=== PATIENT | female | born 1985 | race Hispanic/Latino ===

== ENCOUNTER 2019-04-14 18:42 | Emergency (ER) | payer SELFPAY ==
[2019-04-14 18:51] VITALS: BP 124/65
--- NOTE | 2019-04-14 18:51 | Emergency Department Report ---
Blank Doc - Documentation Documentation: This is a 34-year-old female that presents with pelvic pain, abdominal distent ion and heavy vaginal discharge with some blood. This initial assessment/diagnostic orders/clinical plan/treatment(s) is/are subject to change based on patient's health status, clinical progression and re- assessment by fellow clinical providers in the ED. Further treatment and workup at subsequent clinical providers discretion. Patient/guardians urged not to elope from the ED as their condition may be serious if not clinically assessed and managed. Initial orders include: 1- Patient sent to MAIN ED for further evaluation and treatment 2- labs 3- UA
[2019-04-14 19:26] LABS: Basophils # (Auto) 0.1 K/mm3 (0.0-0.1); Basophils % (Auto) 0.8 % (0.0-1.8); Eosinophils # (Auto) 0.1 K/mm3 (0.0-0.4); Hematocrit 35.5 % (30.3-42.9); Hemoglobin 11.8 gm/dl (10.1-14.3); Lymphocytes # (Auto) 2.4 K/mm3 (1.2-5.4); Lymphocytes % (Auto) 32.5 % (13.4-35.0); Mean Corpuscular HGB Conc 33 % (30-34); Mean Corpuscular Volume 95 fl (79-97); Monocytes # (Auto) 0.6 K/mm3 (0.0-0.8); Monocytes % (Auto) 7.5 % (0.0-7.3); Platelet Count 274 K/mm3 (140-440); Red Blood Count 3.73 M/mm3 (3.65-5.03); Red Cell Distribution Width 13.8 % (13.2-15.2)
[2019-04-14 19:41] LABS: Alanine Aminotransferase 15 units/L (7-56); Albumin 3.9 g/dL (3.9-5); BUN/Creatinine Ratio 18; Blood Urea Nitrogen 7 mg/dL (7-17); Calcium 9.4 mg/dL (8.4-10.2); Hemolysis Index 9
== END 2019-04-14 19:50 | disposition left against medical advice (07) ==
LOC: ED 18:42
DX: R10.9 Unspecified abdominal pain (principal); Z53.21 Procedure and treatment not carried out due to patient leaving prior to being seen by health care provider
CPT/HCPCS: 36415; 80053; 83690; 84703; 85025

== ENCOUNTER 2019-04-20 12:26 | Emergency (ER) | payer SELFPAY ==
[2019-04-20 13:01] LABS: Bacteria,Urine 1+ /HPF (Negative); Bilirubin,Urine NEG (Negative); Blood,Urine NEG (Negative); Color,Urine Yellow (Yellow); Mucus,Urine FEW /HPF; Protein,Urine <15 mg/dL mg/dL (Negative); Urobilinogen,Urine < 2.0 mg/dL (<2.0)
[2019-04-20 13:03] LABS: HCG Qualitative,Urine Negative (Negative)
[2019-04-20 13:09] LABS: Basophils % (Auto) 0.1 % (0.0-1.8); Eosinophils # (Auto) 0.2 K/mm3 (0.0-0.4); Eosinophils % (Auto) 3.4 % (0.0-4.3); Hematocrit 34.4 % (30.3-42.9); Hemoglobin 11.5 gm/dl (10.1-14.3); Lymphocytes # (Auto) 1.6 K/mm3 (1.2-5.4); Lymphocytes % (Auto) 22.1 % (13.4-35.0); Mean Corpuscular HGB Conc 33 % (30-34); Mean Corpuscular Volume 94 fl (79-97); Monocytes # (Auto) 0.5 K/mm3 (0.0-0.8); Monocytes % (Auto) 6.6 % (0.0-7.3); Platelet Count 297 K/mm3 (140-440); Red Blood Count 3.64 M/mm3 (3.65-5.03); Red Cell Distribution Width 13.7 % (13.2-15.2)
[2019-04-20 13:31] LABS: Alanine Aminotransferase 20 units/L (7-56); Albumin 3.7 g/dL (3.9-5); BUN/Creatinine Ratio 12; Blood Urea Nitrogen 7 mg/dL (7-17); Hemolysis Index 1
[2019-04-20 13:41] LABS: Bilirubin,Direct < 0.2 mg/dL (0-0.2)
[2019-04-20] MEDS ORDERED: REGLAN IV ONE (15:05)
[2019-04-20] MEDS ORDERED: MORPHINE IV ONE (15:05)
--- NOTE | 2019-04-20 15:06 | Emergency Department Report ---
ED Abdominal Pain HPI - General Chief Complaint: Abdominal Pain Stated Complaint: ABD/BACK PAIN Time Seen by Provider: 04/20/19 12:34 Source: patient Mode of arrival: Ambulatory Limitations: No Limitations - History of Present Illness Initial Comments: This is a 34-year-old female presents to the emergency room with abdominal pain for 4 days. Past medical history of hypertension, seizures, benign ovarian tumor, and chronic neck pain. Patient states she had a tubal ligation and don't believe she is . Patient states when she stood up yesterday she felt the condition of blood tinged fluid with increase in pain. She reports nausea. Patient denies vomiting, diarrhea, urinary frequency, urgency, dysuria, vaginal discharge, or radiating pain. MD Complaint: abdominal pain Onset/Timin -: days(s) Location: suprapubic Radiation: none Migration to: no migration Severity: severe Severity scale (0 -10): 10 Quality: sharp Consistency: intermittent Improves With: nothing Worsens With: movement Associated Symptoms: nausea. denies: vomiting, diarrhea, fever, chills, constipation, dysuria, hematemesis, hematochezia, melena, hematuria, anorexia, syncope Treatments Prior to Arrival: NSAIDs - Related Data LMP Date: 03/06/19 Home Medications Medication Instructions Recorded Confirmed Last Taken Metoclopramide HCl [Reglan] 10 mg PO Q6HR PRN 06/20/14 06/20/14 06/20/14 Vit 90/Iron Fum/Folic 1 each PO QDAY 06/20/14 06/20/14 06/20/14 [ Formula] Previous Rx's Medication Instructions Recorded Last Taken Type metroNIDAZOLE [Flagyl] 500 mg PO BID #14 tablet 06/21/14 Unknown Rx Ibuprofen [Motrin] 800 mg PO Q8H PRN #20 tablet 04/13/15 Unknown Rx HYDROcodone/APAP 5-325 [[place] 1 each PO Q6HR PRN #15 tablet 06/25/15 Unknown Rx 5-325 mg TAB] medroxyPROGESTERone ACETATE 10 mg PO QDAY #10 tablet 06/25/15 Unknown Rx [Provera] Acetaminophen/Codeine [Tylenol #3] 1 tab PO Q6H PRN #12 tab 02/05/16 Unknown Rx Cyclobenzaprine [Flexeril] 10 mg PO TID PRN #15 tablet 02/05/16 Unknown Rx Ibuprofen [Motrin 600 MG tab] 600 mg PO Q8H PRN #30 tablet 05/19/16 Unknown Rx traMADol [Ultram] 50 mg PO Q6HR PRN #20 tablet 05/19/16 Unknown Rx Acetaminophen/Codeine [Tylenol 1 tab PO Q6H PRN #12 tab 04/20/19 Unknown Rx /Codeine # 3 tab] Naproxen [Naprosyn] 500 mg PO BID PRN #20 tablet 04/20/19 Unknown Rx Allergies Allergy/AdvReac Type Severity Reaction Status Date / Time meperidine HCl [From Demerol] AdvReac Headache Verified 04/20/19 12:38 ED Review of Systems ROS: Stated complaint: ABD/BACK PAIN Other details as noted in HPI Constitutional: denies: chills, fever Respiratory: denies: cough, shortness of breath, wheezing Cardiovascular: denies: chest pain, palpitations Gastrointestinal: abdominal pain, nausea. denies: vomiting, diarrhea Musculoskeletal: denies: back pain, joint swelling, arthralgia Skin: denies: rash, lesions Neurological: denies: headache, weakness, paresthesias Psychiatric: denies: anxiety, depression ED Past Medical Hx - Past Medical History Previous Medical History?: Yes Hx Hypertension: Yes Hx Seizures: Yes Additional medical history: benign ovarian tumor, chronic neck pain - Surgical History Past Surgical History?: Yes Additional Surgical History: c section 2004, 2014, tumor removed bilat overies, tubal ligation 01/24. palpatations. - Social History Smoking Status: Light Tobacco Smoker Substance Use Type: Alcohol - Medications Home Medications: Home Medications Medication Instructions Recorded Confirmed Last Taken Type Metoclopramide HCl [Reglan] 10 mg PO Q6HR PRN 06/20/14 06/20/14 06/20/14 History Vit 90/Iron Fum/Folic 1 each PO QDAY 06/20/14 06/20/14 06/20/14 History [ Formula] metroNIDAZOLE [Flagyl] 500 mg PO BID #14 tablet 06/21/14 Unknown Rx Ibuprofen [Motrin] 800 mg PO Q8H PRN #20 tablet 04/13/15 Unknown Rx HYDROcodone/APAP 5-325 [[place] 1 each PO Q6HR PRN #15 tablet 06/25/15 Unknown Rx 5-325 mg TAB] medroxyPROGESTERone ACETATE 10 mg PO QDAY #10 tablet 06/25/15 Unknown Rx [Provera] Acetaminophen/Codeine [Tylenol #3] 1 tab PO Q6H PRN #12 tab 02/05/16 Unknown Rx Cyclobenzaprine [Flexeril] 10 mg PO TID PRN #15 tablet 02/05/16 Unknown Rx Ibuprofen [Motrin 600 MG tab] 600 mg PO Q8H PRN #30 tablet 05/19/16 Unknown Rx traMADol [Ultram] 50 mg PO Q6HR PRN #20 tablet 05/19/16 Unknown Rx Acetaminophen/Codeine [Tylenol 1 tab PO Q6H PRN #12 tab 04/20/19 Unknown Rx /Codeine # 3 tab] Naproxen [Naprosyn] 500 mg PO BID PRN #20 tablet 04/20/19 Unknown Rx ED Physical Exam - General Limitations: No Limitations General appearance: alert, in no apparent distress - Respiratory Respiratory exam: Present: normal lung sounds bilaterally. Absent: respiratory distress - Cardiovascular Cardiovascular Exam: Present: regular rate, normal rhythm. Absent: systolic mur mur, diastolic murmur, rubs, gallop - GI/Abdominal GI/Abdominal exam: Present: soft, tenderness (left lower quadrant and right lower quadrant), normal bowel sounds. Absent: distended, guarding, rebound, rigid, hyperactive bowel sounds, hypoactive bowel sounds, organomegaly, mass, bruit, pulsatile mass - Back Exam Back exam: Absent: CVA tenderness (R), CVA tenderness (L) - Neurological Exam Neurological exam: Present: alert, oriented X3, normal gait - Psychiatric Psychiatric exam: Present: normal affect, normal mood - Skin Skin exam: Present: warm, dry, intact, normal color. Absent: rash ED Course Vital Signs 04/20/19 12:36 Temperature 98 F Pulse Rate 88 Respiratory 18 Rate Blood Pressure 133/79 [Right] O2 Sat by Pulse 100 Oximetry ED Medical Decision Making - Lab Data Result diagrams: 04/20/19 12:52 04/20/19 12:52 Lab Results 04/20/19 04/20/19 04/20/19 Range/Units 12:45 12:52 12:52 WBC 7.3 (4.5-11.0) K/mm3 RBC 3.64 L (3.65-5.03) M/mm3 Hgb 11.5 (10.1-14.3) gm/dl Hct 34.4 (30.3-42.9) % MCV 94 (79-97) fl MCH 32 (28-32) pg MCHC 33 (30-34) % RDW 13.7 (13.2-15.2) % Plt Count 297 (140-440) K/mm3 Lymph % (Auto) 22.1 (13.4-35.0) % [place] % (Auto) 6.6 (0.0-7.3) % Eos % (Auto) 3.4 (0.0-4.3) % Baso % (Auto) 0.1 (0.0-1.8) % Lymph # 1.6 (1.2-5.4) K/mm3 [place] # 0.5 (0.0-0.8) K/mm3 Eos # 0.2 (0.0-0.4) K/mm3 Baso # 0.0 (0.0-0.1) K/mm3 Seg Neutrophils % 67.8 (40.0-70.0) % Seg Neutrophils # 5.0 (1.8-7.7) K/mm3 Sodium 140 (137-145) mmol/L Potassium 3.9 (3.6-5.0) mmol/L Chloride 103.4 (98-107) mmol/L Carbon Dioxide 26 (22-30) mmol/L Anion Gap 15 mmol/L BUN 7 (7-17) mg/dL Creatinine 0.6 L (0.7-1.2) mg/dL Estimated GFR > 60 ml/min BUN/Creatinine Ratio 12 % Glucose 90 (65-100) mg/dL Calcium 9.0 (8.4-10.2) mg/dL Total Bilirubin 0.20 (0.1-1.2) mg/dL Direct Bilirubin < 0.2 (0-0.2) mg/dL Indirect Bilirubin 0.0 mg/dL AST 25 (5-40) units/L ALT 20 (7-56) units/L Alkaline Phosphatase 77 (35-129) units/L Total Protein 6.6 (6.3-8.2) g/dL Albumin 3.7 L (3.9-5) g/dL Albumin/Globulin Ratio 1.3 % Lipase 25 (13-60) units/L Urine Color Yellow (Yellow) Urine Turbidity Hazy (Clear) Urine pH 8.0 H (5.0-7.0) Ur Specific [place] 1.013 (1.003-1.030) Urine Protein <15 mg/dl (Negative) mg/dL Urine Glucose (UA) Neg (Negative) mg/dL Urine Ketones Neg (Negative) mg/dL Urine Blood Neg (Negative) Urine Nitrite Neg (Negative) Urine Bilirubin Neg (Negative) Urine Urobilinogen < 2.0 (<2.0) mg/dL Ur Leukocyte Esterase Mod (Negative) Urine WBC (Auto) 1.0 (0.0-6.0) /HPF Urine RBC (Auto) 2.0 (0.0-6.0) /HPF U Epithel Cells (Auto) 12.0 (0-13.0) /HPF Urine Bacteria (Auto) 1+ (Negative) /HPF Urine Mucus Few /HPF Urine HCG, Qual Negative (Negative) - Radiology Data Radiology results: report reviewed PROCEDURE: CT ABDOMEN PELVIS W CON TECHNIQUE: Computerized axial tomography of the abdomen and pelvis was performed after the IV injection of iodinated nonionic contrast. CT DOSE LENGTH PRODUCT: 843 mGycm HISTORY: RLQ LLQ tenderness, HX FIBROIDS, OVARIAN TUMOR REMOVAL, CSECTION X 2. COMPARISONS: None . FINDINGS: The lung bases are without infiltrate, pneumothorax or pleural fluid collection. The liver, spleen, pancreas, kidneys and adrenal glands are unremarkable. Bowel is normal caliber. The appendix is normal caliber. There is a small amount of free fluid in the pelvis. There is no evidence of pneumoperitoneum. Abdominal aorta is normal caliber. There is no evidence of intra-abdominal adenopathy. The urinary bladder is moderately distended and unremarkable. There is an approximately 4.2 cm x 3 cm x 3.9 cm heterogeneous mass in the right adnexa that contains fat, soft tissue calcification. Probable teratoma. There is an approximately 5 cm x 3.7 cm x 3.5 cm cystic-appearing mass in the left adnexa. There is a smaller fatty containing mass in the left adnexa that may represent a dermoid. These masses are likely ovarian in margin. The uterus is unremarkable in appearance. The bony structures are unremarkable. IMPRESSION: 1. Approximately 4.2 cm x 3 cm x 2.9 cm probable teratoma right ovary. 2. Approximately 5 cm x 2.7 cm x 3.5 cm cystic structure left ovary. 3. Smaller possible dermoid left ovary. 4. Small amount of free fluid in the pelvis. This is a nonspecific finding. Comparison with previous imaging studies is recommended. If further imaging is required, ultrasound pelvis may be helpful for further evaluation. - Medical Decision Making Patient was examined by me. Vitals are normal and patient is in no acute distress. IV site obtained. Given Reglan and morphine. Obtained labs and CT of abdomen and pelvis. CT dictated by radiologist report reviewed by myself. Consulted Dr. Sanchez PLAYGROUND EQUIPMENT ERECTOR about probable teratoma right ovary and a cystic structure in the left ovary. Dr. Sanchez states patient is stable and can follow- up in office outpatient. Patient will be started on Tylenol No. 3 and naproxen for pain management. Referral to PLAYGROUND EQUIPMENT ERECTOR for continued care. Patient instructed to return to the emergency room if worsening symptoms. Patient discharged home stable. Critical care attestation.: If time is entered above; I have spent that time in minutes in the direct care of this critically ill patient, excluding procedure time. ED Disposition Clinical Impression: Teratoma of right ovary, Cyst of left ovary, Pelvic pain Disposition: TO HOME OR SELFCARE Is pt being admited?: No Does the pt Need Aspirin: No Condition: Stable Instructions: Abdominal Pain (ED), Ovarian Cyst (ED) Additional Instructions: Follow-up with PLAYGROUND EQUIPMENT ERECTOR as discussed regarding teratoma of right ovary and left ovarian cyst. Take pain medication as prescribed. Return to the emergency room if worsening symptoms such as uncontrolled pain, fever, or dizziness. Prescriptions: Naproxen [Naprosyn] 500 mg PO BID PRN #20 tablet PRN Reason: Pain, Moderate (4-6) Acetaminophen/Codeine [Tylenol /Codeine # 3 tab] 1 tab PO Q6H PRN #12 tab PRN Reason: Pain , Severe (7-10) Referrals: [facility] [Outside] - 3-5 Days [facility] [Outside] - 3-5 Days ABBY SANCHEZ MD [Staff Physician] - 3-5 Days [facility] [Provider Group] - 3-5 Days [id number] [Provider Group] - 3-5 Days Forms: Work/School Release Form(ED) Time of Disposition: 18:02
--- NOTE | 2019-04-20 16:26 | Cat Scan Report ---
PROCEDURE: CT ABDOMEN PELVIS W CON TECHNIQUE: Computerized axial tomography of the abdomen and pelvis was performed after the IV inject ion of iodinated nonionic contrast. CT DOSE LENGTH PRODUCT: 843 mGycm HISTORY: RLQ LLQ tenderness, HX FIBROIDS, OVARIAN TUMOR REMOVAL, CSECTION X 2. COMPARISONS: None . FINDINGS: The lung bases are without infiltrate, pneumothorax or pleural fluid collection. The liver, spleen, pancreas, kidneys and adrenal glands are unremarkable. Bowel is normal caliber. The appendix is normal caliber. There is a small amount of free fluid in the pelvis. There is no evidence of pneumoperitoneum. Abdominal aorta is normal caliber. There is no evidence of intra-abdominal adenopathy. The urinary bladder is moderately distended and unremarkable. There is an approximately 4.2 cm x 3 cm x 3.9 cm heterogeneous mass in the right adnexa that contains fat, soft tissue calcification. Probable teratoma. There is an approximately 5 cm x 3.7 cm x 3.5 cm cystic-appearing mass in the left adnexa. There is a smaller fatty containing mass in the left adnexa that may represent a dermoid. These masses are likely ovarian in margin. The uterus is unremarkable in appearance. The bony structures are unremarkable. IMPRESSION: 1. Approximately 4.2 cm x 3 cm x 2.9 cm probable teratoma right ovary. 2. Approximately 5 cm x 2.7 cm x 3.5 cm cystic structure left ovary. 3. Smaller possible dermoid left ovary. 4. Small amount of free fluid in the pelvis. This is a nonspecific finding. Comparison with previous imaging studies is recommended. If further imaging is required, ultrasound pelvis may be helpful for further evaluation. This document is electronically signed by Liz Anguiano MD., April 20 2019 04:24:09 PM ET
[2019-04-20 17:59] VITALS: BP 106/68
== END 2019-04-20 18:10 | disposition home or self-care (01) ==
LOC: ED 12:26
DX: D27.0 Benign neoplasm of right ovary (principal); G89.29 Other chronic pain; I10 Essential (primary) hypertension; F17.200 Nicotine dependence, unspecified, uncomplicated; Z98.51 Tubal ligation status; Z88.8 Allergy status to other drugs, medicaments and biological substances
CPT/HCPCS: 36415; 74177; 80048; 80076; 81001; 81025; 83690; 85025; 96374; 96375; 99284; J2270; J2765; Q9967

== ENCOUNTER 2019-12-08 09:36 | Emergency (ER) | payer SELFPAY ==
[2019-12-08] MEDS ORDERED: MORPHINE 4 MG/1 ML INJ IV ONE ×2 (10:28→15:17)
[2019-12-08] MEDS ORDERED: ONDANSETRON 4 MG/2 ML INJ IV ONE (10:28)
[2019-12-08] MEDS ORDERED: SODIUM CHLORIDE 0.9% 1000 ML 1,000 ML IV ONE (10:32)
--- NOTE | 2019-12-08 10:32 | Emergency Department Report ---
ED Abdominal Pain HPI - General Chief Complaint: Abdominal Pain Stated Complaint: ABD PAIN Time Seen by Provider: 12/08/19 10:24 Source: patient Mode of arrival: Wheelchair Limitations: No Limitations - History of Present Illness Initial Comments: Patient is 34 years old female with no significant past medical history except for tubal ligation 4 years ago. Patient presented to the ER complaining of lower abdominal pain for the last 4 days. Patient also stated that she has been having irregular period. Patient described her pain as sharp with no radiation. Patient stated that she had a gush of fluids tinged with blood per vagina 4 days ago. Patient denied any fever or chills. MD Complaint: abdominal pain -: days(s) (4) Location: suprapubic Radiation: none Severity: moderate Severity scale (0 -10): 6 Quality: sharp - Related Data Home Medications Medication Instructions Recorded Confirmed Last Taken Metoclopramide HCl [Reglan] 10 mg PO Q6HR PRN 06/20/14 06/20/14 06/20/14 Vit 90/Iron Fum/Folic 1 each PO QDAY 06/20/14 06/20/14 06/20/14 [ Formula] Previous Rx's Medication Instructions Recorded Last Taken Type metroNIDAZOLE [Flagyl] 500 mg PO BID #14 tablet 06/21/14 Unknown Rx Ibuprofen [Motrin] 800 mg PO Q8H PRN #20 tablet 04/13/15 Unknown Rx HYDROcodone/APAP 5-325 [[place] 1 each PO Q6HR PRN #15 tablet 06/25/15 Unknown Rx 5-325 mg TAB] medroxyPROGESTERone ACETATE 10 mg PO QDAY #10 tablet 06/25/15 Unknown Rx [Provera] Acetaminophen/Codeine [Tylenol #3] 1 tab PO Q6H PRN #12 tab 02/05/16 Unknown Rx Cyclobenzaprine [Flexeril] 10 mg PO TID PRN #15 tablet 02/05/16 Unknown Rx Ibuprofen [Motrin 600 MG tab] 600 mg PO Q8H PRN #30 tablet 05/19/16 Unknown Rx traMADoL [Ultram] 50 mg PO Q6HR PRN #20 tablet 05/19/16 Unknown Rx Acetaminophen/Codeine [Tylenol 1 tab PO Q6H PRN #12 tab 04/20/19 Unknown Rx /Codeine # 3 tab] Naproxen [Naprosyn] 500 mg PO BID PRN #20 tablet 04/20/19 Unknown Rx Allergies Allergy/AdvReac Type Severity Reaction Status Date / Time meperidine HCl [From Demerol] AdvReac Headache Verified 04/20/19 12:38 ED Review of Systems ROS: Stated complaint: ABD PAIN Other details as noted in HPI Comment: All other systems reviewed and negative Constitutional: denies: chills, fever Respiratory: denies: cough, shortness of breath, SOB with exertion, SOB at rest Cardiovascular: denies: chest pain, palpitations Gastrointestinal: abdominal pain. denies: nausea, vomiting, diarrhea, constipation, hematemesis, melena, hematochezia Genitourinary: abnormal menses Musculoskeletal: denies: back pain Neurological: denies: headache, weakness, numbness, paresthesias, confusion ED Past Medical Hx - Past Medical History Previous Medical History?: Yes Hx Hypertension: Yes Hx Seizures: Yes Additional medical history: benign ovarian tumor, chronic neck pain - Surgical History Past Surgical History?: Yes Additional Surgical History: c section 2004, 2014, tumor removed bilat overies, tubal ligation 01/24. palpatations. - Social History Smoking Status: Light Tobacco Smoker Substance Use Type: Alcohol - Medications Home Medications: Home Medications Medication Instructions Recorded Confirmed Last Taken Type Metoclopramide HCl [Reglan] 10 mg PO Q6HR PRN 06/20/14 06/20/14 06/20/14 History Vit 90/Iron Fum/Folic 1 each PO QDAY 06/20/14 06/20/14 06/20/14 History [ Formula] metroNIDAZOLE [Flagyl] 500 mg PO BID #14 tablet 06/21/14 Unknown Rx Ibuprofen [Motrin] 800 mg PO Q8H PRN #20 tablet 04/13/15 Unknown Rx HYDROcodone/APAP 5-325 [[place] 1 each PO Q6HR PRN #15 tablet 06/25/15 Unknown Rx 5-325 mg TAB] medroxyPROGESTERone ACETATE 10 mg PO QDAY #10 tablet 06/25/15 Unknown Rx [Provera] Acetaminophen/Codeine [Tylenol #3] 1 tab PO Q6H PRN #12 tab 02/05/16 Unknown Rx Cyclobenzaprine [Flexeril] 10 mg PO TID PRN #15 tablet 03/26/16 Unknown Rx Ibuprofen [Motrin 600 MG tab] 600 mg PO Q8H PRN #30 tablet 05/19/16 Unknown Rx traMADoL [Ultram] 50 mg PO Q6HR PRN #20 tablet 05/19/16 Unknown Rx Acetaminophen/Codeine [Tylenol 1 tab PO Q6H PRN #12 tab 04/20/19 Unknown Rx /Codeine # 3 tab] Naproxen [Naprosyn] 500 mg PO BID PRN #20 tablet 04/20/19 Unknown Rx ED Physical Exam - General Limitations: No Limitations General appearance: alert, in no apparent distress - Head Head exam: Present: atraumatic, normocephalic, normal inspection - Eye Eye exam: Present: normal appearance - ENT ENT exam: Present: mucous membranes dry - Neck Neck exam: Present: normal inspection, full ROM. Absent: tenderness, mening ismus, lymphadenopathy, thyromegaly - Respiratory Respiratory exam: Present: normal lung sounds bilaterally - Cardiovascular Cardiovascular Exam: Present: tachycardia - GI/Abdominal GI/Abdominal exam: Present: soft, normal bowel sounds. Absent: distended, tenderness, guarding, rebound, rigid, organomegaly, mass, bruit, pulsatile mass, hernia - External exam: Present: normal external exam, erythema. Absent: swelling, lesions, lacerations, ecchymosis, bleeding Speculum exam: Present: normal speculum exam. Absent: erythema, cervical discharge, vaginal bleeding, tissue Bi-manual exam: Present: normal bi-manual exam - Extremities Exam Extremities exam: Present: normal inspection, full ROM, normal capillary refill. Absent: tenderness, pedal edema, calf tenderness - Back Exam Back exam: Present: normal inspection, full ROM. Absent: CVA tenderness (R), CVA tenderness (L), muscle spasm, paraspinal tenderness, vertebral tenderness - Neurological Exam Neurological exam: Present: alert, oriented X3, CN II-XII intact - Psychiatric Psychiatric exam: Present: normal mood - Skin Skin exam: Present: warm, intact, normal color ED Course Vital Signs 12/08/19 12/08/19 12/08/19 09:39 10:52 14:30 Temperature 97.9 F 98.4 F Pulse Rate 115 H 96 H 104 H Respiratory 16 16 16 Rate Blood Pressure 130/80 Blood Pressure 125/70 112/66 [Left] O2 Sat by Pulse 100 98 100 Oximetry ED Medical Decision Making - Lab Data Result diagrams: 12/08/19 10:09 12/08/19 10:09 - Radiology Data Radiology results: report reviewed - Medical Decision Making Patient is 34 years old female with no significant past medical history except for tubal ligation 4 years ago. Patient presented to the ER complaining of lower abdominal pain for the last 4 days. Patient also stated that she has been having irregular period. Patient described her pain as sharp with no radiation. Patient stated that she had a gush of fluids tinged with blood per vagina 4 days ago. Patient denied any fever or chills. Patient received morphine for pain with significant improvement. Labs reviewed and is unremarkable. CT abdomen and pelvis is IV contrast showed bilateral dermoid cyst. Wet prep is negative for acute finding. GC and chlamydia test is pending patient advised to call the hospital for results in approximately 2 days. Patient given prescription for Naprosyn and tramadol advised to follow-up with her vacuum extractor operator in the next 2-3 days and to return to the ER if she develops any new symptoms. Critical care attestation.: If time is entered above; I have spent that time in minutes in the direct care of this critically ill patient, excluding procedure time. ED Disposition Clinical Impression: Abdominal pain, Vaginal discharge Disposition: - TO HOME OR SELFCARE Is pt being admited?: No Condition: Stable Instructions: Abdominal Pain (ED) Referrals: PRIMARY CARE, [Primary Care Provider] - 3-5 Days
[2019-12-08 10:40] LABS: Basophils % (Auto) 0.7 % (0.0-1.8); Eosinophils # (Auto) 0.1 K/mm3 (0.0-0.4); Eosinophils % (Auto) 2.7 % (0.0-4.3); Hematocrit 36.8 % (30.3-42.9); Hemoglobin 12.2 gm/dl (10.1-14.3); Lymphocytes # (Auto) 1.8 K/mm3 (1.2-5.4); Lymphocytes % (Auto) 35.4 % (13.4-35.0); Mean Corpuscular HGB Conc 33 % (30-34); Mean Corpuscular Volume 89 fl (79-97); Monocytes # (Auto) 0.4 K/mm3 (0.0-0.8); Monocytes % (Auto) 8.3 % (0.0-7.3); Platelet Count 289 K/mm3 (140-440); Red Blood Count 4.16 M/mm3 (3.65-5.03); Red Cell Distribution Width 13.4 % (13.2-15.2)
[2019-12-08 10:41] LABS: Bacteria,Urine 1+ /HPF (Negative); Bilirubin,Urine NEG (Negative); Blood,Urine NEG (Negative); Color,Urine Straw (Yellow); Protein,Urine <15 mg/dL mg/dL (Negative); Urobilinogen,Urine < 2.0 mg/dL (<2.0)
[2019-12-08 10:43] LABS: HCG Qualitative,Urine Negative (Negative)
[2019-12-08 11:13] LABS: Alanine Aminotransferase 22 units/L (7-56); Albumin 3.6 g/dL (3.9-5); BUN/Creatinine Ratio 27; Blood Urea Nitrogen 8 mg/dL (7-17); Calcium 9.5 mg/dL (8.4-10.2); Hemolysis Index 7
[2019-12-08 11:33] LABS: INR 0.93 (0.87-1.13)
[2019-12-08 11:46] LABS: Partial Thromboplastin Time 25.8 Sec. (24.2-36.6)
--- NOTE | 2019-12-08 15:06 | Cat Scan Report ---
CT ABDOMEN AND PELVIS WITH CONTRAST INDICATION: Lower abdominal pain for 3 days. COMPARISON: CT abdomen and pelvis with contrast from 04/20/2019. TECHNIQUE: Axial, coronal and sagittal CT imaging of the abdomen and pelvis was performed after inje ction of 100 mL Omnipaque [address] scans at this location are performed using CT dose re duction for ALARA by means of automated exposure control. FINDINGS: LOWER CHEST: No significant abnormality. LIVER: No significant abnormality. BILIARY: No significant abnormality. PANCREAS: No significant abnormality. SPLEEN: No significant abnormality. ADRENALS: No significant abnormality. KIDNEYS AND URETERS: No significant abnormality. GI TRACT: No significant abnormality of the stomach, small bowel or colon. Unremarkable appendix. PERITONEUM: No free fluid. No free air. No fluid collection. LYMPH NODES: No significant adenopathy. VASCULATURE: No significant abnormality. URINARY BLADDER: No significant abnormality. REPRODUCTIVE ORGANS: There are bilateral ovarian dermoids, measuring 4.6 x 3.6 cm on the right and 2. 5 x 2.4 cm on the left. The right ovarian terminal and previously measured 3.0 x 3.4 cm. The left ova seema dermoid cannot clearly be seen on the prior study. No significant abnormality of the uterus. ADDITIONAL FINDINGS: None. SKELETAL SYSTEM: No significant abnormality. IMPRESSION: 1. No acute abnormality of the abdomen or pelvis. 2. Bilateral ovarian dermoids as above. Signer Name: Butch Gregory MD Signed: 12/08/2019 3:02 PM Workstation Name: [id number]
[2019-12-08 17:08] VITALS: BP 119/75
== END 2019-12-08 17:08 | disposition home or self-care (01) ==
LOC: ED 09:36
DX: N89.8 Other specified noninflammatory disorders of vagina (principal); I10 Essential (primary) hypertension; F17.200 Nicotine dependence, unspecified, uncomplicated; Z79.899 Other long term (current) drug therapy; Z88.8 Allergy status to other drugs, medicaments and biological substances
CPT/HCPCS: 36415; 74177; 80053; 81001; 81025; 84702; 85025; 85610; 85730; 87210; 87591; 96374; 96375; 96376; 99284; J2270; J2405; J7030; Q9967

== ENCOUNTER 2020-09-21 22:36 | Emergency (ER) | payer OTHER ==
[2020-09-22 00:15] VITALS: BP 129/86
[2020-09-22 01:21] LABS: Basophils # (Auto) 0.1 K/mm3 (0.0-0.1); Basophils % (Auto) 0.6 % (0.0-1.8); Eosinophils # (Auto) 0.2 K/mm3 (0.0-0.4); Eosinophils % (Auto) 2.4 % (0.0-4.3); Hemoglobin 12.2 gm/dl (10.1-14.3); Lymphocytes # (Auto) 2.9 K/mm3 (1.2-5.4); Lymphocytes % (Auto) 30.6 % (13.4-35.0); Mean Corpuscular HGB Conc 33 % (30-34); Mean Corpuscular Volume 96 fl (79-97); Monocytes # (Auto) 0.7 K/mm3 (0.0-0.8); Monocytes % (Auto) 7.5 % (0.0-7.3); Platelet Count 265 K/mm3 (140-440); Red Blood Count 3.85 M/mm3 (3.65-5.03); Red Cell Distribution Width 13.1 % (13.2-15.2)
[2020-09-22 01:35] LABS: Alanine Aminotransferase 22 units/L (7-56); BUN/Creatinine Ratio 20; Blood Urea Nitrogen 8 mg/dL (7-17); Calcium 9.4 mg/dL (8.4-10.2); Hemolysis Index 3
== END 2020-09-22 00:30 | disposition left against medical advice (07) ==
LOC: ED 22:36
DX: R10.9 Unspecified abdominal pain (principal); Z53.21 Procedure and treatment not carried out due to patient leaving prior to being seen by health care provider
CPT/HCPCS: 36415; 80053; 84703; 85025

== ENCOUNTER 2020-09-22 12:53 | Emergency (ER) | payer OTHER ==
[2020-09-22 14:13] VITALS: BP 130/86
--- NOTE | 2020-09-22 14:15 | Event Note ---
ED Screening Note ED Screening Note: 35-year-old female with history of ovarian cyst presents emerged department complaining of severe suprapubic pain radiates towards her left side with some notable swelling and is not on her menstruation. She states that previously she has gotten pain to this magnitude when she has been on her menses but has not the case at present. She reports no diarrhea no constipation no fevers chills or sweats she had have some increased urinary frequency but no flank pain no burning with urination no decreased urinary production. She should she denies any trauma This initial assessment/diagnostic orders/clinical plan/treatment(s) is/are subject to change based on patients health status, clinical progression and re- assessment by fellow clinical providers in the ED. Further treatment and workup at subsequent clinical providers discretion. Patient/guardian urged not to elope from the ED as their condition may be serious if not clinically assessed and managed. Initial orders include: Urinalysis and labs
[2020-09-22 14:48] LABS: Basophils # (Auto) 0.1 K/mm3 (0.0-0.1); Basophils % (Auto) 0.7 % (0.0-1.8); Eosinophils # (Auto) 0.4 K/mm3 (0.0-0.4); Eosinophils % (Auto) 4.6 % (0.0-4.3); Hematocrit 36.7 % (30.3-42.9); Hemoglobin 12.5 gm/dl (10.1-14.3); Lymphocytes # (Auto) 2.4 K/mm3 (1.2-5.4); Mean Corpuscular HGB Conc 34 % (30-34); Mean Corpuscular Volume 94 fl (79-97); Monocytes # (Auto) 0.6 K/mm3 (0.0-0.8); Monocytes % (Auto) 7.3 % (0.0-7.3); Platelet Count 283 K/mm3 (140-440); Red Blood Count 3.89 M/mm3 (3.65-5.03); Red Cell Distribution Width 13.3 % (13.2-15.2)
[2020-09-22 14:56] LABS: Alanine Aminotransferase 21 units/L (7-56); Blood Urea Nitrogen 9 mg/dL (7-17); Calcium 9.4 mg/dL (8.4-10.2); Hemolysis Index 16
[2020-09-22 14:58] LABS: BUN/Creatinine Ratio 23
[2020-09-22] MEDS ORDERED: SODIUM CHLORIDE 0.9% 1000 ML 1,000 ML IV ONE (16:36)
[2020-09-22] MEDS ORDERED: ONDANSETRON 4 MG/2 ML INJ IV ONE (16:36)
[2020-09-22] MEDS ORDERED: MORPHINE 2 MG/1 ML INJ IM ONE (16:36)
--- NOTE | 2020-09-22 17:30 | Emergency Department Report ---
ED Abdominal Pain HPI - General Chief Complaint: Abdominal Pain Stated Complaint: ABD PAIN Time Seen by Provider: 09/22/20 16:29 Source: patient Mode of arrival: Ambulatory Limitations: No Limitations - History of Present Illness Initial Comments: 35-year-old female with history of ovarian cyst presents emerged department complaining of severe suprapubic pain radiates towards her left side with some notable swelling and is not on her menstruation. She states that previously she has gotten pain to this magnitude when she has been on her menses but has not the case at present. She reports no diarrhea no constipation no fevers chills or sweats she had have some increased urinary frequency but no flank pain no burning with urination no decreased urinary production. She denies any trauma. MD Complaint: abdominal pain, flank pain Onset/Timin -: days(s) Location: suprapubic Radiation: L flank Migration to: no migration Severity scale (0 -10): 7 Quality: fullness, other (Pressure) Consistency: constant Improves With: nothing Worsens With: movement Associated Symptoms: denies: nausea, vomiting, diarrhea, hematemesis, hematochezia, hematuria, anorexia - Related Data LMP Date: 09/07/20 Home Medications Medication Instructions Recorded Confirmed Last Taken Metoclopramide HCl [Reglan] 10 mg PO Q6HR PRN 06/20/14 06/20/14 06/20/14 Vit 90/Iron Fum/Folic 1 each PO QDAY 06/20/14 06/20/14 06/20/14 [ Formula] Previous Rx's Medication Instructions Recorded Last Taken Type metroNIDAZOLE [Flagyl] 500 mg PO BID #14 tablet 06/21/14 Unknown Rx Ibuprofen [Motrin] 800 mg PO Q8H PRN #20 tablet 04/13/15 Unknown Rx HYDROcodone/APAP 5-325 [[place] 1 each PO Q6HR PRN #15 tablet 06/25/15 Unknown Rx 5-325 mg TAB] medroxyPROGESTERone ACETATE 10 mg PO QDAY #10 tablet 06/25/15 Unknown Rx [Provera] Acetaminophen/Codeine [Tylenol #3] 1 tab PO Q6H PRN #12 tab 02/05/16 Unknown Rx Cyclobenzaprine [Flexeril] 10 mg PO TID PRN #15 tablet 02/05/16 Unknown Rx traMADoL [Ultram] 50 mg PO Q6HR PRN #20 tablet 05/19/16 Unknown Rx Acetaminophen/Codeine [Tylenol 1 tab PO Q6H PRN #12 tab 04/20/19 Unknown Rx /Codeine # 3 tab] Naproxen [Naprosyn] 500 mg PO BID PRN #20 tablet 04/20/19 Unknown Rx Naproxen [Naprosyn] 500 mg PO BID #14 tablet 12/08/19 Unknown Rx Ondansetron [Zofran Odt] 4 mg PO Q8HR PRN #14 tab.rapdis 12/08/19 Unknown Rx traMADoL [Ultram 50 MG tab] 50 mg PO Q4HR PRN #14 tablet 12/08/19 Unknown Rx Ibuprofen [Motrin 600 MG tab] 600 mg PO Q8H PRN #30 tablet 09/22/20 Unknown Rx Allergies Allergy/AdvReac Type Severity Reaction Status Date / Time meperidine HCl [From Demerol] AdvReac Headache Verified 04/20/19 12:38 ED Review of Systems ROS: Stated complaint: ABD PAIN Other details as noted in HPI Comment: All other systems reviewed and negative ED Past Medical Hx - Past Medical History Previous Medical History?: Yes Hx Hypertension: Yes Hx Seizures: Yes Additional medical history: benign ovarian tumor, chronic neck pain - Surgical History Past Surgical History?: Yes Additional Surgical History: c section 2014, tumor removed bilat overies, tubal ligation 01/24. palpatations. - Social History Smoking Status: Never Smoker Substance Use Type: None - Medications Home Medications: Home Medications Medication Instructions Recorded Confirmed Last Taken Type Metoclopramide HCl [Reglan] 10 mg PO Q6HR PRN 06/20/14 06/20/14 06/20/14 History Vit 90/Iron Fum/Folic 1 each PO QDAY 06/20/14 06/20/14 06/20/14 History [ Formula] metroNIDAZOLE [Flagyl] 500 mg PO BID #14 tablet 06/21/14 Unknown Rx Ibuprofen [Motrin] 800 mg PO Q8H PRN #20 tablet 04/13/15 Unknown Rx HYDROcodone/APAP 5-325 [[place] 1 each PO Q6HR PRN #15 tablet 06/25/15 Unknown Rx 5-325 mg TAB] medroxyPROGESTERone ACETATE 10 mg PO QDAY #10 tablet 06/25/15 Unknown Rx [Provera] Acetaminophen/Codeine [Tylenol #3] 1 tab PO Q6H PRN #12 tab 02/05/16 Unknown Rx Cyclobenzaprine [Flexeril] 10 mg PO TID PRN #15 tablet 02/05/16 Unknown Rx traMADoL [Ultram] 50 mg PO Q6HR PRN #20 tablet 05/19/16 Unknown Rx Acetaminophen/Codeine [Tylenol 1 tab PO Q6H PRN #12 tab 04/20/19 Unknown Rx /Codeine # 3 tab] Naproxen [Naprosyn] 500 mg PO BID PRN #20 tablet 04/20/19 Unknown Rx Naproxen [Naprosyn] 500 mg PO BID #14 tablet 12/08/19 Unknown Rx Ondansetron [Zofran Odt] 4 mg PO Q8HR PRN #14 tab.rapdis 12/08/19 Unknown Rx traMADoL [Ultram 50 MG tab] 50 mg PO Q4HR PRN #14 tablet 12/08/19 Unknown Rx Ibuprofen [Motrin 600 MG tab] 600 mg PO Q8H PRN #30 tablet 09/22/20 Unknown Rx ED Physical Exam - General Limitations: No Limitations General appearance: alert, in distress - Head Head exam: Present: atraumatic, normocephalic - Eye Eye exam: Present: normal appearance - ENT ENT exam: Present: mucous membranes moist - Neck Neck exam: Present: normal inspection, full ROM - Respiratory Respiratory exam: Present: normal lung sounds bilaterally. Absent: respiratory distress - Cardiovascular Cardiovascular Exam: Present: tachycardia - GI/Abdominal GI/Abdominal exam: Present: soft, distended, tenderness, guarding - Back Exam Back exam: Present: full ROM - Neurological Exam Neurological exam: Present: alert, oriented X3 - Psychiatric Psychiatric exam: Present: normal affect, normal mood - Skin Skin exam: Present: warm, dry, intact, normal color. Absent: rash ED Course Vital Signs 09/22/20 14:10 Temperature 98 F Pulse Rate 116 H Respiratory 18 Rate Blood Pressure 130/86 O2 Sat by Pulse 100 Oximetry ED Medical Decision Making - Lab Data Result diagrams: 09/22/20 14:26 09/22/20 14:26 - Radiology Data Radiology results: report reviewed Patient Name: MAMADOU UMANZOR Gender: Female Date of : 1985 Referring Provider: KYLIE ALVARADO Organization: [facility] Accession Number: [id number] Requested Date: September 22, 2020 16:36 Report Status: Final Requested Procedure: 1 Procedure Description: CT abdomen pelvis w con Modality: CT Findings Reporting MD: Jeyson Ceja Dictation Time: September 22, 2020 17:12 Supervisor Tunnel 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 TECHNIQUE: All CT scans at this location are performed using CT dose reduction for ALARA by means of automated exposure control. COMPARISON: 12/08/2019 FINDINGS: Lung bases are clear of acute disease. Liver, gallbladder, spleen, pancreas, kidneys and adrenals are negative. Abdominal aorta is normal in size. No adenopathy. Pelvis Normal appendix. Both ovaries are abnormal. Left ovarian dermoid measures 2 cm and has decreased slightly in the interval. However, the right dermoid has enlarged, measuring 5.6 cm x 4.3 cm x 4.2 cm. In addition, there has now developed a 3.9 cm cyst in the right ovary, anterior and inferior to the described dermal. No free fluid. Uterus and urinary bladder appear unremarkable. IMPRESSION: 1. Enlarging right ovarian dermoid (measurements above), with interval development since November of a 3.9 cm right ovarian cyst. 2. Left ovarian dermoid has decreased slightly in size. 3. I do not see the cause of the patient's left flank pain. Signer Name: Jeyson Ceja MD Signed: 09/22/2020 5:12 PM Workstation Name: [email or web address] [id number] - Medical Decision Making 35-year-old female with history of ovarian cyst presents emerged department complaining of severe suprapubic pain radiates towards her left side with some notable swelling and is not on her menstruation. She states that previously she has gotten pain to this magnitude when she has been on her menses but has not the case at present. She reports no diarrhea no constipation no fevers chills or sweats she had have some increased urinary frequency but no flank pain no burning with urination no decreased urinary production. She denies any trauma. CBC CMP ordered and urinalysis urine test and CT of abdomen with contrast. Patient was also given order for morphine and Zofran. Critical care attestation.: If time is entered above; I have spent that time in minutes in the direct care of this critically ill patient, excluding procedure time. ED Disposition Clinical Impression: Abdominal pain, Dermoid cyst of both ovaries Disposition: TO HOME OR SELFCARE Is pt being admited?: No Does the pt Need Aspirin: No Condition: Stable Instructions: Abdominal Pain (ED), Ovarian Cyst Additional Instructions: Please take pain medication as needed follow-up with a [facility] I have listed several below for your convenience. Prescriptions: Ibuprofen [Motrin 600 MG tab] 600 mg PO Q8H PRN #30 tablet PRN Reason: Pain Referrals: [facility] [Primary Care Provider] - 3-5 Days [facility] [Provider Group] - 3-5 Days [facility] [Provider Group] - 3-5 Days Forms: Work/School Release Form(ED)
--- NOTE | 2020-09-22 18:16 | Cat Scan Report ---
CT abdomen pelvis w con INDICATION: Left flank pain and tenderness palpation. TECHNIQUE: All CT scans at this location are performed using CT dose reduction for ALARA by means of automated e xposure control. COMPARISON: 12/08/2019 FINDINGS: Lung bases are clear of acute disease. Liver, gallbladder, spleen, pancreas, kidneys and adrenals are negative. Abdominal aorta is normal in size. No adenopathy. Pelvis Normal appendix. Both ovaries are abnormal. Left ovarian dermoid measures 2 cm and has decreased slig htly in the interval. However, the right dermoid has enlarged, measuring 5.6 cm x 4.3 cm x 4.2 cm. In addition, there has now developed a 3.9 cm cyst in the right ovary, anterior and inferior to the karthik cribed dermal. No free fluid. Uterus and urinary bladder appear unremarkable. IMPRESSION: 1. Enlarging right ovarian dermoid (measurements above), with interval development since November of a 3.9 cm right ovarian cyst. 2. Left ovarian dermoid has decreased slightly in size. 3. I do not see the cause of the patient's left flank pain. Signer Name: Jeyson Ceja MD Signed: 09/22/2020 6:12 PM Workstation Name: [id number]
[2020-09-22 19:09] LABS: Bilirubin,Urine NEG (Negative); Blood,Urine NEG (Negative); Color,Urine Yellow (Yellow); Mucus,Urine FEW /HPF; Protein,Urine <15 mg/dL mg/dL (Negative); Urobilinogen,Urine < 2.0 mg/dL (<2.0)
== END 2020-09-22 19:25 | disposition home or self-care (01) ==
LOC: ED 12:53
DX: D27.1 Benign neoplasm of left ovary (principal); D27.0 Benign neoplasm of right ovary; R10.2 Pelvic and perineal pain; I10 Essential (primary) hypertension; R56.9 Unspecified convulsions; Z98.890 Other specified postprocedural states; Z98.51 Tubal ligation status; Z79.1 Long term (current) use of non-steroidal anti-inflammatories (NSAID); Z79.899 Other long term (current) drug therapy; Z88.8 Allergy status to other drugs, medicaments and biological substances
CPT/HCPCS: 36415; 74177; 80053; 81001; 84703; 85025; 96361; 96372; 96374; 99284; J2270; J2405; J7030; Q9967